=== PATIENT | male | born 1950 | race Caucasian/White ===

== ENCOUNTER 2017-09-07 05:02 | Emergency (ER) | payer MEDICARE, OTHER ==
[~2017-09-07] VITALS: Ht 170.2 cm; Wt 89.6 kg
[~2017-09-07 05:02] MED LIST: AMLO-218 PO; FOMAX; HYT5; LEVOTHY; LIPITOR; LISI10TA2 PO
[2017-09-07 05:30] VITALS: Ht 170.2 cm; Wt 89.6 kg
[2017-09-07] MEDS ORDERED: SOD CHLORIDE 0.9% 1,000 ML IV STA (06:28)
[2017-09-07] MEDS ORDERED: FAMOTIDINE 20 MG INJ IV STA (06:28)
[2017-09-07] MEDS ORDERED: ONDANSETRON 4 MG INJ IV STA (06:28)
[2017-09-07] MEDS ORDERED: KETOROLAC 30 MG INJ IV STA (06:28)
[2017-09-07 07:39] LABS: BASOPHILS % 0.2 % (0.0-2.0); EOSINOPHILS # 0.2 10^3/ul (0.0-0.5); EOSINOPHILS % 1.1 % (0.0-7.0); HEMATOCRIT 46.6 % (42.0-52.0); LYMPHOCYTES # 1.4 10^3/ul (0.8-2.9); LYMPHOCYTES % 8.8 % (15.0-51.0); MEAN CORPUSCULAR HEMOGLOBIN 31.8 pg (29.0-33.0); MEAN CORPUSCULAR HGB CONC 34.3 g/dl (32.0-37.0); MEAN CORPUSCULAR VOLUME 92.6 fl (82.0-101.0); MEAN PLATELET VOLUME 10.1 fl (7.4-10.4); MONOCYTE # 1.2 10^3/ul (0.3-0.9); MONOCYTES % 7.5 % (0.0-11.0); NEUTROPHIL # 12.6 10^3/ul (1.6-7.5); NEUTROPHILS % 82.1 % (39.0-77.0); PLATELET COUNT 254 10^3/UL (140-415); RED BLOOD COUNT 5.03 10^6/ul (4.70-6.10); RED CELL DISTRIBUTION WIDTH 13.7 % (11.5-14.5); WHITE BLOOD COUNT 15.4 10^3/ul (4.8-10.8)
[2017-09-07] MEDS ORDERED: LISI40TA9 PO (07:58)
[2017-09-07] MEDS ORDERED: AMLO2.5T78 PO (07:58)
[2017-09-07] MEDS ORDERED: MET25 PO (07:58)
[2017-09-07 08:03] LABS: ADD UMIC NO; UR ASCORBIC ACID 40 mg/dL (NEGATIVE); UR BILIRUBIN (Dip) NEGATIVE (NEGATIVE); UR BLOOD (Dip) NEGATIVE (NEGATIVE); UR CLARITY SLIGHTLY CLOUDY (CLEAR); UR COLOR AMBER (YELLOW); UR GLUCOSE (Dip) NEGATIVE (NEGATIVE); UR KETONES (Dip) NEGATIVE (NEGATIVE); UR LEUKOCYTE ESTERASE (Dip) NEGATIVE Leu/ul (NEGATIVE); UR MUCUS FEW /HPF (NONE SEEN); UR NITRITE (Dip) NEGATIVE (NEGATIVE); UR RBC 1 /HPF (0-5); UR TOTAL PROTEIN (Dip) NEGATIVE (NEGATIVE); UR UROBILINOGEN (Dip) NEGATIVE (NEGATIVE)
[2017-09-07 08:12] LABS: ALANINE AMINOTRANSFERASE 42 IU/L (13-69); ALBUMIN 4.7 g/dl (3.3-4.9); ALBUMIN/GLOBULIN RATIO 1.34; ALKALINE PHOSPHATASE 88 IU/L (42-121); ANION GAP 18 (8-16); ASPARTATE AMINO TRANSFERASE 44 IU/L (15-46); BILIRUBIN,INDIRECT 0.7 mg/dl (0-1.1); BILIRUBIN,TOTAL 0.7 mg/dl (0.2-1.3); BLOOD UREA NITROGEN 16 mg/dl (7-20); CALCIUM 9.1 mg/dl (8.4-10.2); CARBON DIOXIDE 22 mmol/L (21-31); CHLORIDE 102 mmol/L (97-110); GLUCOSE 113 mg/dl (70-220); POTASSIUM 4.4 mmol/L (3.5-5.1); SODIUM 138 mmol/L (135-144); TOTAL PROTEIN 8.2 g/dl (6.1-8.1)
[2017-09-07 08:23] LABS: TROPONIN-I < 0.012 ng/ml (0.00-0.12)
[2017-09-07] MEDS ORDERED: OMEP40CA6 PO (08:25)
[2017-09-07] MEDS ORDERED: LEVO100T87 PO (08:28)
[2017-09-07] MEDS ORDERED: ATOR20TA38 PO (08:28)
[2017-09-07] MEDS ORDERED: HYDR-902 PO (08:28)
[2017-09-07] MEDS ORDERED: DOCU-144 PO (08:28)
[2017-09-07] MEDS ORDERED: TAMS0.4C2 PO (08:29)
--- NOTE | 2017-09-07 08:31 | RADRPT ---
PROCEDURE: CT Abdomen and pelvis without contrast. CLINICAL INDICATION: Abdominal pain TECHNIQUE: CT scan of the abdomen and pelvis without contrast was performed on a multidetector hig h-resolution CT scan. . Coronal and sagittal reformatted images were obtained from the axial [facility] e images. Standard CT scan of the abdomen pelvis without contrast protocols were performed. The total exam CTDI equals 17.75 mGy and the total exam DLP equals 1088.15 mGy-cm. One or more of the following dose reduction techniques were used: - Automated exposure control. - Adjustment of the mA and/or kV according to patient size. Use of iterative reconstruction technique. Dicom images are available COMPARISON: None. FINDINGS: There is diverticulosis of the ascending, distal descending and sigmoid colon without CT evidence of diverticulitis. The colon is otherwise unremarkable. There are prominent but nondilated fluid fille d the mid and proximal small bowel with the remainder of the small bowel unremarkable of uncertain s ignificance and may represent ileus. The stomach and appendix are unremarkable. Negative for intra-abdominal free air, free fluid, abscesses or lymphadenopathy. The kidneys are normal in size without calcified renal calculi, hydronephrosis or intra renal masses bilaterally. Urinary bladder is unremarkable. Prostate unremarkable. Liver spleen pancreas adrenal glands and gallbladder are unremarkable. No biliary ductal dilation. Fat containing left inguinal hernia without herniated bowel or strangulation. Remainder abdominal pe lvic wall unremarkable. Atherosclerosis of the aorta but no aneurysm. Minimal scarring at the left base. Lung bases otherwise unremarkable. Coronary artery disease. Extensive degenerative changes lower thoracic and lumbar spine without acute osseous findings are os teoblastic/osteolytic lesions. IMPRESSION: 1. Colonic diverticulosis without CT evidence diverticulitis. 2. Prominent nondilated fluid filled the mid and proximal small bowel remainder of the small bowel unremarkable of uncertain significance but may represent with ileus 3. Unremarkable appendix. 4. No evidence of calcified urinary calculi or obstructive uropathy. 5. Fat containing left inguinal hernia without herniated bowel or strangulation. RPTAT:AAJJ Physician Artur Date Time Electronically viewed and signed by Physician Artur on 09/07/2017 08:31 BM/
--- NOTE | 2017-09-07 08:40 | ERD ---
ER Documentation Chief Complaint Chief Complaint AP since yesterday evening; n/v/d. denies urinary symptoms HPI This is a 66-year-old male who presents to the emergency room for evaluation of nausea, vomiting and diarrhea. He states that he has had these symptoms for 24 hours duration. The patient denies any fevers or chills associated with this, denies any chest pain or shortness of breath and came to the emergency room for evaluation of symptoms. He does state that he has abdominal cramping and localizes her cramping to the midportion of his abdomen, with no radiation. He denies any aggravating or relieving factors for his symptoms and came to the ER for evaluation ROS All systems reviewed and are negative except as per history of present illness. Medications Home Meds Reported Medications Tamsulosin Hcl* (Tamsulosin Hcl*) 0.4 Mg Cap.er.24h, 0.4 MG PO HS, CAP 09/07/17 Docusate Sodium* (Colace*) 100 Mg Capsule, 100 MG PO DAILY Y for CONSTIPATION, # 30 CAP 09/07/17 Levothyroxine Sodium* (Levothyroxine Sodium*) 100 Mcg Tablet, 100 MCG PO BEFORE BREAKFAST, #30 TAB 09/07/17 Atorvastatin Calcium* (Atorvastatin Calcium*) 20 Mg Tablet, 20 MG PO QHS, #30 TAB 09/07/17 Hydrocodone/Acetaminophen ([place] 10-325 Tablet) 1 Each Tablet, 1 EACH PO DAILY Y for SEVERE PAIN LEVEL 7-10, TAB 09/07/17 Omeprazole* (Omeprazole*) 40 Mg Capsule.dr, 40 MG PO AC BREAKFAST, #30 CAP 09/07/17 Lisinopril* (Lisinopril*) 40 Mg Tablet, 40 MG PO DAILY, #30 TAB 09/07/17 Amlodipine Besylate* (Amlodipine Besylate*) 2.5 Mg Tablet, 2.5 MG PO DAILY, #30 TAB 09/07/17 Methotrexate* (Methotrexate*) 2.5 Mg Tab, 7.5 MG PO, TAB 09/07/17 Discontinued Reported Medications [Levothy] No Conflict Check 08/31/16 [Lipitor] No Conflict Check 08/31/16 [Fomax] No Conflict Check 08/31/16 Amlodipine Besylate* (Norvasc*) 10 Mg Tablet, 10 MG PO DAILY, TAB 08/31/16 Lisinopril* (Lisinopril*) 10 Mg Tablet, 10 MG PO DAILY, #30 TAB 08/31/16 Terazosin Hcl* (Hytrin*) 5 Mg Capsule 12/12/10 Allergies Allergies: Coded Allergies: No Known Allergy (Verified , 03/11/09) Uncoded Allergies: KEFLEX (Allergy, Mild, RASH, 03/10/09) PMhx/Soc History of Surgery: Yes (MULTIPLE HERNIA REPAIRS) Anesthesia Reaction: No Hx Neurological Disorder: No Hx Respiratory Disorders: No Hx Cardiac Disorders: Yes (HTN, HIGH CHOLESTEROL) Hx Psychiatric Problems: No Hx Miscellaneous Medical Probl: Yes (BPH) Hx Alcohol Use: No Hx Substance Use: No Hx Tobacco Use: No Smoking Status: Never smoker Physical Exam Vitals Vital Signs Date Time Temp Pulse Resp B/P Pulse Ox O2 Delivery O2 Flow Rate FiO2 09/07/17 07:15 99.0 72 15 151/100 98 Room Air 09/07/17 05:30 100.1 83 18 143/79 100 Physical Exam INITIAL VITAL SIGNS: Reviewed by me GENERAL: The patient is well developed and appropriate for usual state of health in no apparent distress HEENT: Pupils equal, round, and reactive to light. EOMI. There is no scleral icterus. NECK: C-spine is soft and supple, there is no meningismus. There is no cervical lymphadenopathy. LUNGS: Clear to auscultation bilaterally. There are no rales, wheezes or rhonchi. HEART: Regular rate and rhythm, no murmurs, clicks, rubs or gallops. ABDOMEN:. soft, non-tender, non-distended. There are bowel sounds in all four quadrants. No rebound or guarding. Negative Duarte sign, no CVAT EXTREMITIES: There is no peripheral cyanosis or edema. No focal swelling or erythema. NEUROLOGICAL: The patient moves all four extremities with 5/5 strength. Cranial nerves II - XII are intact. Normal gait. Alert and oriented SKIN: There is no apparent rash or petechiae. HEME/LYMPHATIC: There is no evidence of excessive bruising or lymphedema. PSYCHIATRIC: The patient does not appear anxious or depressed. Result Diagram: 09/07/17 0715 09/07/17 0715 Results 24 hrs Laboratory Tests Test 09/07/17 07:15 09/07/17 07:30 White Blood Count 15.410^3/ul Red Blood Count 5.0310^6/ul Hemoglobin 16.0g/dl Hematocrit 46.6% Mean Corpuscular Volume 92.6fl Mean Corpuscular Hemoglobin 31.8pg Mean Corpuscular Hemoglobin Concent 34.3g/dl Red Cell Distribution Width 13.7% Platelet Count 73663^3/UL Mean Platelet Volume 10.1fl Neutrophils % 82.1% Lymphocytes % 8.8% Monocytes % 7.5% Eosinophils % 1.1% Basophils % 0.2% Nucleated Red Blood Cells % 0.0/100WBC Neutrophils # 12.610^3/ul Lymphocytes # 1.410^3/ul Monocytes # 1.210^3/ul Eosinophils # 0.210^3/ul Basophils # 0.010^3/ul Nucleated Red Blood Cells # 0.010^3/ul Sodium Level 138mmol/L Potassium Level 4.4mmol/L Chloride Level 102mmol/L Carbon Dioxide Level 22mmol/L Anion Gap 18 Blood Urea Nitrogen 16mg/dl Creatinine 0.90mg/dl Glucose Level 113mg/dl Calcium Level 9.1mg/dl Total Bilirubin 0.7mg/dl Direct Bilirubin 0.00mg/dl Indirect Bilirubin 0.7mg/dl Aspartate Amino Transf (AST/SGOT) 44IU/L Alanine Aminotransferase (ALT/SGPT) 42IU/L Alkaline Phosphatase 88IU/L Troponin I < 0.012ng/ml Total Protein 8.2g/dl Albumin 4.7g/dl Globulin 3.50g/dl Albumin/Globulin Ratio 1.34 Lipase 62U/L Urine Color RANI Urine Clarity SLIGHTLY CLOUDY Urine pH 6.0 Urine Specific [place] 1.020 Urine Ketones NEGATIVEmg/dL Urine Nitrite NEGATIVEmg/dL Urine Bilirubin NEGATIVEmg/dL Urine Urobilinogen NEGATIVEmg/dL Urine Leukocyte Esterase NEGATIVELeu/ul Urine Microscopic RBC 1/HPF Urine Microscopic WBC 1/HPF Urine Mucus FEW/HPF Urine Hemoglobin NEGATIVEmg/dL Urine Glucose NEGATIVEmg/dL Urine Total Protein NEGATIVEmg/dl Current Medications Medications (Trade) Dose Ordered Sig/Олег Route PRN Reason Start Time Stop Time Status Last Admin Dose Admin Sodium Chloride (NS) 1,000 ml @ 1,000 mls/hr Q1H STAT IV 09/07/17 06:28 09/07/17 07:27 DC 09/07/17 07:19 Ondansetron HCl (Zofran Inj) 4 mg ONCE STAT IV 09/07/17 06:28 09/07/17 06:30 DC 09/07/17 07:26 Famotidine (Pepcid Iv) 20 mg ONCE STAT IV 09/07/17 06:28 09/07/17 06:30 DC 09/07/17 07:26 Ketorolac Tromethamine (Toradol) 30 mg ONCE STAT IV 09/07/17 06:28 09/07/17 06:30 DC 09/07/17 07:26 Procedures/MDM CT abdomen pelvis without: 1. Colonic diverticulosis without CT evidence diverticulitis. 2. Prominent nondilated fluid filled the mid and proximal small bowel remainder of the small bowel unremarkable of uncertain significance but may represent with ileus 3. Unremarkable appendix. 4. No evidence of calcified urinary calculi or obstructive uropathy. 5. Fat containing left inguinal hernia without herniated bowel or strangulation. This 66-year-old male presents to the ER for evaluation of nausea, vomiting and diarrhea. He was also complaining of abdominal cramping. I have reviewed this patient's previous medical records and it appears that he has had a small bowel obstruction in the past. The patient had no rebound no guarding or tenderness on my examination. His CT of the abdomen and pelvis was obtained and it does demonstrate a partial ileus. The patient has had a lot of diarrhea and he was given IV fluids, Zofran and Pepcid. When I reevaluated this patient he stated that he was having no pain, he was no acute distress. He was passing gas and my suspicion for an obstruction is low at this time. The patient was advised to stay hydrated, and he was advised that if he were to have any continued pain or any vomiting that he can return to the emergency room at any point for reevaluation. He verbalized understanding, and both him and his were comfortable with her plan of care. Differential diagnoses entertained was broad with potential high acuity. Patient has been evaluated for appendicitis, cholecystitis, and other high risk medical and surgical causes of abdominal pain. Ultimately the patient's evaluation is nondiagnostic. Based on the patient's lack of risk factors, as well as the patient's clinical, laboratory, and imaging data, the patient appears to be low risk for these high risk causes of abdominal pain. This patient does have a slight leukocytosis which is likely reactive to his vomiting and diarrhea Departure Diagnosis: Primary Impression: Nausea vomiting and diarrhea Additional Impressions: Abdominal colic Ileus Condition: Stable GALEN GIFFORD DO Sep 07, 2017 08:40
[2017-09-07 09:15] VITALS: BP 128/75; PULSE 70; RESP 14; TEMP 98
== END 2017-09-07 09:25 | disposition home or self-care (01) ==
LOC: E/R 05:02
DX: K56.7 Ileus, unspecified (principal); R19.7 Diarrhea, unspecified; I10 Essential (primary) hypertension
CPT/HCPCS: 36415; 74176; 80053; 81001; 83690; 84484; 85025; 96374; 96375; 99285; J1885; J2405; J7030; 81003